=== PATIENT | female | born 1995 | race Caucasian/White ===

== ENCOUNTER 2018-10-13 09:29 | Emergency (ER) | payer OTHER ==
[~2018-10-13] VITALS: Ht 162.6 cm; Wt 55.3 kg
[2018-10-13 09:30] VITALS: BP 113/69
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
--- NOTE | 2018-10-13 09:34 | NUR ---
PATIENT WHEELCHAIR ASSISTED TO BED 4. Addendum: 10/13/18 at 0951 by NATHANAEL PATIENT WHEELCHAIR ASSISTED TO BED 7.
[2018-10-13 09:39] VITALS: BP 138/82
--- NOTE | 2018-10-13 10:53 | NUR ---
DR BARROSO AT BEDSIDE FOR PT EVAL
[2018-10-13] MEDS ORDERED: ACETAMINOPHEN EXTRA STRENGTH 500 MG TAB PO ONE (10:55)
--- NOTE | 2018-10-13 10:58 | NUR ---
XRAY AT BEDSIDE
[2018-10-13 12:02] VITALS: BP 100/55
== END 2018-10-13 12:02 | disposition home or self-care (01) ==
LOC: MED 09:29
DX: O26.891 Other specified pregnancy related conditions, first trimester (principal); R07.89 Other chest pain; M79.672 Pain in left foot; O23.41 Unspecified infection of urinary tract in pregnancy, first trimester; Z3A.13 13 weeks gestation of pregnancy; Z91.013 Allergy to seafood; V49.49XA Driver injured in collision with other motor vehicles in traffic accident, initial encounter; W22.10XA Striking against or struck by unspecified automobile airbag, initial encounter; Y93.89 Activity, other specified; Y92.488 Other paved roadways as the place of occurrence of the external cause; Y99.8 Other external cause status
CPT/HCPCS: 73630; 81002; 81025; 99283; Q0092